=== PATIENT | female | born 2000 | race Hispanic/Latino ===

== ENCOUNTER 2021-07-13 18:47 | Emergency (ER) | payer BC ==
[~2021-07-13] VITALS: Ht 167.6 cm; Wt 69.4 kg
[2021-07-13] MEDS ORDERED: CEFTRIAXONE 1G VIAL IM ONE (19:30)
[2021-07-13] MEDS ORDERED: LIDOCAINE HCL 2% VISCOUS 15 ML UDCUP PO ONE (19:30)
[2021-07-13] MEDS ORDERED: ACETAMINOPHEN WITH CODEINE 1 TAB TAB PO ONE (19:30)
[2021-07-13] MEDS ORDERED: DICYCLOMINE HCL 10 MG/5 ML ML PO ONE (19:30)
[2021-07-13] MEDS ORDERED: MAG/ALUM/SIMETH 30 ML UDCUP PO ONE (19:30)
[2021-07-13] MEDS ORDERED: LIDOCAINE HCL-MPF 1% 2ML VIAL ONE (19:47)
[2021-07-13] MEDS ORDERED: AMOX1TAB16 PO (20:11)
[2021-07-13] MEDS ORDERED: ACET-2079 PO (20:11)
[2021-07-13 20:18] VITALS: BP 121/67
== END 2021-07-13 20:33 | disposition home or self-care (01) ==
LOC: EDH 18:47
DX: J02.0 Streptococcal pharyngitis (principal)
CPT/HCPCS: 36415; 86308; 87804 ×2; 87880; 96372; 99284; J0696; J3490

== ENCOUNTER 2022-08-05 15:29 | Emergency (ER) | payer BC ==
[~2022-08-05] VITALS: Ht 172.7 cm; Wt 68.0 kg
[~2022-08-05 15:29] MED LIST: ACET-2079 PO; AMOX1TAB16 PO
[2022-08-05 15:31] VITALS: BP 151/94
[2022-08-05] MEDS ORDERED: CEFTRIAXONE 1G VIAL IM ONE (16:30)
[2022-08-05] MEDS ORDERED: CEPH500B PO (16:33)
== END 2022-08-05 19:26 | disposition home or self-care (01) ==
LOC: EDH 15:29
DX: L03.116 Cellulitis of left lower limb (principal)